=== PATIENT | male | born 1980 | race Caucasian/White ===

== ENCOUNTER 2022-08-12 19:38 | Emergency (ER) | payer SELFPAY ==
[2022-08-12 19:43] VITALS: BP 160/100; PULSE 90; RESP 20; TEMP 98.7; BMI 36.6
[2022-08-12] MEDS ORDERED: AMOX TR/POT CLAV 500MG/125MG TABLETS (FP) PO ONE (21:46)
[2022-08-12] MEDS ORDERED: ACETAMINOPHEN 500 MG TABLET (FP) PO ONE (21:47)
[2022-08-12] MEDS ORDERED: IBUPROFEN 600 MG TABLET (FP) PO ONE ×2 (21:47→21:48)
[2022-08-12] MEDS ORDERED: AMOX TR/POT CLAV 500MG/125MG TABLETS (FP) ONE (21:48)
[2022-08-12] MEDS ORDERED: ACETAMINOPHEN 500 MG TABLET (FP) ONE (21:49)
== END 2022-08-12 22:00 | disposition home or self-care (01) ==
LOC: JERFT 19:38
DX: R21 Rash and other nonspecific skin eruption (principal); K08.89 Other specified disorders of teeth and supporting structures; K02.9 Dental caries, unspecified; N48.1 Balanitis
CPT/HCPCS: 99283-25

== ENCOUNTER 2024-02-10 14:28 | Emergency (ER) | payer SELFPAY ==
[2024-02-10] MEDS ORDERED: FAMOTIDINE 20 MG/50 ML IVPB 20 MG/50 ML MG IVPB ONE (16:27)
[2024-02-10] MEDS ORDERED: ACETAMINOPHEN INJECTION 100 ML ONE (16:27)
[2024-02-10] MEDS ORDERED: ONDANSETRON 4 MG/2 ML VIAL ONE (16:27)
[2024-02-10 16:32] VITALS: BP 141/89; PULSE 76; RESP 20; TEMP 98.4; BMI 32.9
[2024-02-10] MEDS: ONDANSETRON 4 MG/2 ML VIAL IVPUSH ONE (16:35)
[2024-02-10] MEDS: ACETAMINOPHEN 1000 MG/100 ML BAG IVPB ONE (16:41)
[2024-02-10 16:45] LABS: BASO % 0.2 % (0-2.0); EOS % 0.4 % (0-4.5); HEMOGLOBIN 17.1 GM/dL (11.7-16.9); LYMPH % 16.5 % (8-40); MCH 33.4 pg (25.7-33.7); MCHC 34.9 g/dl (32.0-35.9); MEAN CELL VOLUME 95.5 fl (80-96); MEAN PLT VOLUME 9.8 fl (7.5-11.1); MONO % 4.7 % (3.8-10.2); NEUT % 78.2 % (42.8-82.8); PLATELET COUNT 177 10^3/uL (134-434); RBC 5.13 M/mm3 (4.00-5.60); RDW 12.7 % (11.9-15.9); WHITE BLOOD COUNT 9.8 K/mm3 (4.0-10.0)
[2024-02-10 17:04] LABS: POTASSIUM 3.7 mmol/L (3.5-5.1)
[2024-02-10] MEDS: FAMOTIDINE 20 MG/50 ML IVPB 20 MG/50 ML MG IVPB ONE (17:05)
[2024-02-10 17:07] LABS: ALBUMIN 4.4 g/dl (3.4-5.0); BLOOD UREA NITROGEN 12.2 mg/dL (7-18); CALCIUM 9.4 mg/dL (8.5-10.1)
[2024-02-10 17:10] LABS: CREATININE 0.9 mg/dL (0.55-1.3)
[2024-02-10 17:12] LABS: BILIRUBIN,TOTAL 0.9 mg/dL (0.2-1); TOT PROT 8.2 g/dl (6.4-8.2)
[2024-02-10 17:32] LABS: HIV INTERPRETATION NEGATIVE (NEGATIVE)
[2024-02-10 18:11] LABS: PH,URINE 5.5 (5.0-8.0); URINE APPEARANCE CLEAR; URINE BILIRUBIN NEGATIVE (NEGATIVE); URINE COLOR YELLOW; URINE GLUCOSE (UA) 3+ (NEGATIVE); URINE KETONE 1+ (NEGATIVE); URINE LEUK ESTERASE NEGATIVE (NEGATIVE); URINE NITRITE NEGATIVE (NEGATIVE); URINE PROTEIN TRACE (NEGATIVE); URINE UROBILINOGEN 0.2 mg/dL (0.2-1.0)
[2024-02-10] MEDS ORDERED: SUCRALFATE 1 GM TABLET (FP) ONE (22:40)
[2024-02-10] MEDS ORDERED: MAG HYDROX/AL HYDROX/SIMETH 30 ML UNIT-DOSE CUP ONE (22:40)
[2024-02-10] MEDS ORDERED: LIDOCAINE VISCOUS 2% ORAL/TOP 15 ML UNIT-DOSE CUP ONE (22:40)
[2024-02-10] MEDS: MAG HYDROX/AL HYDROX/SIMETH -MYLANTA- ORAL SUSPENSION PO ONE (22:46)
[2024-02-10] MEDS: LIDOCAINE VISCOUS 2% ORAL/TOP 15 ML UNIT-DOSE CUP MM ONE (22:46)
[2024-02-10] MEDS: SUCRALFATE 1 GM TABLET (FP) PO ONE (22:46)
[2024-02-11] MEDS ORDERED: SUCRALFATE 1 GM TABLET (FP) PO ONE (22:39)
== END 2024-02-10 23:42 | disposition home or self-care (01) ==
LOC: JER 14:28
PROC: 3E033GC Introduction of Other Therapeutic Substance into Peripheral Vein, Percutaneous Approach (ICD-10-PCS; principal; 2024-02-10)
PROC: 3E033NZ Introduction of Analgesics, Hypnotics, Sedatives into Peripheral Vein, Percutaneous Approach (ICD-10-PCS; 2024-02-10)
PROC: 3E033GC Introduction of Other Therapeutic Substance into Peripheral Vein, Percutaneous Approach (ICD-10-PCS; 2024-02-10)
DX: K29.70 Gastritis, unspecified, without bleeding (principal); R10.13 Epigastric pain; R11.0 Nausea
CPT/HCPCS: 36415; 76705-TC; 80053; 81003; 83690; 84484; 85025; 86803; 87389; 93005; 93010; 99285-25; J0131